=== PATIENT | female | born 1970 | race African-American/Black ===

== ENCOUNTER 2017-10-17 19:53 | Emergency (ER) | payer MEDICAID ==
[~2017-10-17] VITALS: Ht 170.2 cm; Wt 126.0 kg
[2017-10-17] MEDS ORDERED: KETOROLAC 30 MG/1 ML ONE (21:00)
[2017-10-17] MEDS ORDERED: KETOROLAC 30 MG/1 ML IM ONE (21:00)
[2017-10-17 21:48] VITALS: BP 143/87
== END 2017-10-17 21:50 | disposition home or self-care (01) ==
LOC: ED 21:30
DX: S40.011A Contusion of right shoulder, initial encounter (principal); W19.XXXA Unspecified fall, initial encounter; Y93.89 Activity, other specified; Y92.009 Unspecified place in unspecified non-institutional (private) residence as the place of occurrence of the external cause; Y99.8 Other external cause status
CPT/HCPCS: 73030; 96372; 99284; J1885